=== PATIENT | male | born 1985 | race Caucasian/White ===

== ENCOUNTER 2023-07-18 08:59 | Outpatient (CLI) | payer OTHER, SELFPAY ==
--- NOTE | 2023-07-18 09:24 | ECHO_ITS ---
Patient Info Name: Matthew Bryan Age: 38 years : 1985 Gender: Male Ht: 74 in Wt: 240 lbs BSA: 2.41 m2 HR: 54 bpm BP: 131 / 79 mmHg Technical Quality: Fair Exam Date: 07/18/2023 9:32 AM Exam Location: [facility] Patient Status: Outpatient Admit Date: 07/18/2023 Staff Ordering Physician: Yahir Giraldo MD Expenditure Requisition Clerk: Anel Dumont RDCS Attending Provider: Yahir Giraldo MD Referring Physician: Enzo MACHADO; Exam Type: CA echo doppler w bubble study Study Info Indications G45.9 - Transient cerebral ischemic attack, unspecified Complete two-dimensional, color flow and Doppler transthoracic echocardiogram is performed with agitated saline. Contrast/Agitated Saline Contrast/Ag. Saline: Agitated Saline Amount: 20.00 ml Administered By: Anel Dumont [facility] Existing IV Access: Yes New IV Access: Left Site Condition: IV removed Summary 1. Left ventricular chamber dimension is mildly enlarged. 2. Left ventricular systolic function is normal, estimated at 65-70%. 3. The left ventricular diastolic function is normal. 4. E/e' 8 is minimally elevated. 5. Left atrial chamber dimension is mildly enlarged. 6. Right atrial chamber dimension is mildly enlarged. 7. Agitated saline injection with and without valsalva opacified right side cardiac chambers and only with valsalva there were several bubbles that shunted to left cardiac chambers suggestive of patent foramen ovale. 8. There is mild tricuspid valve regurgitation. 9. No pulmonary hypertension, estimated pulmonary arterial systolic pressure is 18 mmHg. 10. There is trace pulmonic regurgitation. Left Ventricle E/e' 8 is minimally elevated. Left ventricular chamber dimension is mildly enlarged. Left ventricular systolic function is normal, estimated at 65-70%. The left ventricular diastolic function is normal. Right Ventricle Right ventricular chamber dimension is normal. Right ventricular systolic function is normal. Left Atria Left atrial chamber dimension is mildly enlarged. Right Atria Right atrial chamber dimension is mildly enlarged. Atrial Septum Agitated saline injection with and without valsalva opacified right side cardiac chambers and only with valsalva there were several bubbles that shunted to left cardiac chambers suggestive of patent foramen ovale. Suspected patent foramen ovale visualized by 2D and agitated saline imaging. Aortic Valve The aortic valve is trileaflet. There is no aortic valve stenosis. There is no aortic valve regurgitation. Pulmonic Valve There is trace pulmonic regurgitation. Mitral Valve There is no mitral valve stenosis. There is no mitral valve regurgitation. Tricuspid Valve There is mild tricuspid valve regurgitation. No pulmonary hypertension, estimated pulmonary arterial systolic pressure is 18 mmHg. Pericardium/Pleural There is no pericardial effusion. Inferior Vena Cava Normal inferior vena cava with >50% collapse upon inspiration consistent with normal right atrial pressure, 5 mmHg. Aorta The aortic root size at the sinus of Valsalva is normal. Left Ventricular Outflow Tract Name Value Normal LVOT 2D LVOT Diameter 2.2 cm LVOT Doppler
== END 2023-07-18 09:00 | disposition home or self-care (01) ==
PROVIDERS: PCP Family Medicine; Visit Provider Family Medicine
DX: G45.9 Transient cerebral ischemic attack, unspecified (principal); I07.1 Rheumatic tricuspid insufficiency; R93.1 Abnormal findings on diagnostic imaging of heart and coronary circulation
CPT/HCPCS: 93306; 96375

== ENCOUNTER → 2023-07-18 12:28 | Outpatient (CLI) | payer OTHER, SELFPAY ==
--- NOTE | ~2023-07-18 | US_ITS ---
EXAMINATION: US carotid duplex BI DATE: 07/18/2023 12:54 INDICATION: Transient cerebral ischemic attack. Speech-language deficit. TECHNIQUE: Grayscale, color Doppler, and pulsed Doppler images of the cervical carotid arteries were obtained. The degree of vessel stenosis is placed in one of the following categories: normal, <50%, 5 0-69%, >=70% but less than near-occlusion, near-occlusion, or total occlusion. Note that percent sten osis relative to normal distal artery lumen diameter is indirectly measured from velocity measurement s as described by Iam, et al. Radiology 2003; 229:340-346. COMPARISON: None. FINDINGS: RIGHT: The right common carotid artery (CCA) peak systolic velocity (PSV) is 132 cm/s. The right internal ca rotid artery (ICA) PSV is 97 cm/s. The right ICA end-diastolic velocity (EDV) is 27 cm/s. The right I CA/CCA PSV ratio is 0.6. Grayscale and color Doppler images demonstrate no appreciable stenosis or pl aque in the ICA. The external carotid artery (ECA) PSV is 120 cm/s. There is antegrade flow in the ri ght vertebral artery. LEFT: The left CCA PSV is 158 cm/s. The left ICA PSV is 104 cm/s. The left ICA EDV is 25 cm/s. The left ICA /CCA PSV ratio is 0.7. Grayscale and color Doppler images demonstrate no appreciable stenosis or plaq ue in the ICA. The ECA PSV is 118 cm/s. There is antegrade flow in the left vertebral artery. IMPRESSION: 1. No evident plaque or stenosis in the right internal carotid artery. 2. No evident plaque or stenosis in the left internal carotid artery. Reviewed, dictated and finalized at location A.
== END ==
PROVIDERS: PCP Family Medicine; Visit Provider Family Medicine
DX: G45.9 Transient cerebral ischemic attack, unspecified (principal)
CPT/HCPCS: 93880

== ENCOUNTER 2023-09-17 14:00 | Outpatient (RCR) | payer OTHER, SELFPAY ==
--- NOTE | 2023-07-23 11:00 | PTOPEVAL1 ---
Assessment and note entered by Vazquez Alberto Evaluation Information Assessment Status Evaluation Diagnosis TIA Onset 07/06/23 Subjective Information Pt. is present. She reports that they were in [place] and he suffered a seizure. He was taken to the hospital. He reports he was discharged and saw his family doctor, who felt his medication at the time could have caused his seizures. His reports he woke on 07/10/23 and was slurring his speech. He was taken to the [place] for testing. He underwent MRI and was informed that he suffered a TIA on 07/15/23 by his family doctor. 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 He and his have noticed his gait has declined since the TIA. he was initially using a walker, but is not going with only holding onto his wifes hand. He reports that his walker at home is a 2 wheeled walker. he notices that the left foot will start to drag towards the end of the day when he is tired. Pt. has stumbled a few times, but has not fallen since his TIA. He reports that he walked without complication prior to this recent episode. He reports that his goal is to be able to walk without assistance. Reported Pain Level Pain Score 5: Self Report Assessment PT Clinical Summary Pt. is a 38 year old male who enters the clinic post TIA. He presents with impaired balance, impaired gait, impaired l.e. strength, impaired coordination and pain on this date. Continued skilled PT is indicated in order to improve these areas to allow for improved safety and independence with IADL performance. Plan of Care Interventions Gait Training,Manual Therapy,Neuro Re-education, Patient/Caregiver Educati,Therapeutic Activities, Therapeutic Exercise PT Services Indicated Yes Treatment Frequency and 2x/week x 10 visits Duration These treatments will address the objective and functional deficits as defined above. The patient will be advanced safely and appropriately in order for the patient to progress towards his/her prior level of function. Additional exercises will be introduced and as well as a comprehensive home exercise program upon discharge, if needed, ?to ensure carryover of functional gains achieved in the clinic. This treatment plan has been reviewed and agreement upon by the patient.
--- NOTE | 2023-07-23 11:02 | OPREHPOC ---
Outpatient Therapy Plan of Care This is a Multidisciplinary Plan of Care that may contain components documented by all disciplines (PT, OT, and ST.) PT Problem 1 PT Problem #1 Knowledge Deficit PT Goal 1 Goal Indepndent with a HEP addressing l.e. strength and mobility. PT Problem 2 PT Problem #2 Impaired Balance PT Goal 1 Goal Pt. will increase his tinetti score to 15 or greater indicating improved balance and safety. Target Visit 10 PT Problem 3 PT Problem #3 Impaired Gait PT Goal 1 Goal Pt. will ambulate over level surface with single point cane independently for a distance of 300-500 ' Target Visit 10 PT Problem 4 PT Problem #4 Impaired Functional Mobil PT Goal 1 Goal Pt. will safely ambulate through the community without assistance using a single point cane. Target Visit 10 PT Problem 5 PT Problem #5 Impaired Strength PT Goal 1 Goal Pt. will demonstrate 4+/5 gross l.e. strength in order to improve stability and endurance with standing activities. Target Visit 10
--- NOTE | 2023-08-01 16:08 | STOPEVAL1 ---
Assessment and note entered by Hannah Serra WHITTLING ROOM OPERATOR Evaluation Information Assessment Status Evaluation Reported Pain Level Pain Score 0: Self Report Assessment ST Clinical Summary Pt was seen for a speech/language and cognitive- linguistic evaluation due to complaint of slurred speech, increased confusion, and knowing he wants to say but can't say it . Upon completion of this evaluation, pt was found to exhibit mild communicative and mild executive function deficits . 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 Due to this communicative dysfunction, skilled speech therapy is warranted 2x/week for 8 visits. 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 Plan of Care Interventions Treatment of Speech,Treatment for Cognitive F ST Services Indicated Yes Treatment Frequency and 2x/week for 8 visits Duration These treatments will address the objective and functional deficits as defined above. The patient will be advanced safely and appropriately in order for the patient to progress towards his/her prior level of function. Additional exercises will be introduced and as well as a comprehensive home exercise program upon discharge, if needed, ?to ensure carryover of functional gains achieved in the clinic. This treatment plan has been reviewed and agreement upon by the patient.
--- NOTE | 2023-08-01 16:19 | STOPEVAL1 ---
Assessment and note entered by Hannah Serra, RN SECURITY Evaluation Information Assessment Status Evaluation Diagnosis TIA; Possible CVA Onset July 06 Subjective Information Patient and his reported his speech deficits vary but are much different than prior to this TIA ; they report slurring of speech worsens as the day goes; he reportedly has episodes of increased rate of talking and can occasionally get louder; he reports he also gets more easily confused as the day goes. Pt reportedly suffered a TBI while in the but they report he was at his cognitive baseline until recently. Pt was working as a construction technician. He was independent with all activities of daily living; he was working, driving, managing finances without assist. They reported only a rare stutter. Reported Pain Level Pain Score 0: Self Report Assessment ST Clinical Summary Pt was seen for a speech/language and cognitive- linguistic evaluation due to complaint of slurred speech, increased confusion, and knowing he wants to say but can't say it . Upon completion of this evaluation, pt was found to exhibit mild communicative and mild executive function deficits . 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 Due to this communicative dysfunction, skilled speech therapy is warranted 2x/week for 8 visits. 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 Plan of Care Interventions Treatment of Speech,Treatment for Cognitive F ST Services Indicated Yes Treatment Frequency and 2x/week for 8 visits Duration These treatments will address the objective and functional deficits as defined above. The patient will be advanced safely and appropriately in order for the patient to progress towards his/her prior level of function. Additional exercises will be introduced and as well as a comprehensive home exercise program upon discharge, if needed, ?to ensure carryover of functional gains achieved in the clinic. This treatment plan has been reviewed and agreement upon by the patient.
--- NOTE | 2023-08-09 14:02 | PCSTNOTE ---
pt canceled appointment on 08/07/23 due to a schedule conflict
--- NOTE | 2023-08-12 13:11 | PCPTNOTE ---
Patient called & cancelled scheduled appointment this date due to getting x-ray over the weekend and having right ankle fracture.
--- NOTE | 2023-08-12 17:02 | PCPTNOTE ---
Pt's called and stated after therapy last week, patient's right ankle began to hurt and swell. Pt's stated pt stated that he worked on his right leg in therapy that day. Went to emergency room where x-rays found arthritis and a fracture. Pt's states they said it wasn't broken but has a fracture . Reports patient was not provided a walking boot and does not have her paperwork present to see if orthopaedic referral was performed. Pt's cancelled therapy this week but didn't want it to count against him as a cancellation. Will discuss with referring MD and reevaluate patient as able to continue therapy due to reported status change.
--- NOTE | 2023-08-20 16:57 | PTOPPROG ---
Assessment and note entered by Milady Bautista, PT Assessment Status Progress Report Diagnosis TIA Therapy conditions LLE weakness, unspec abnormalities of gait and mobility, LLE drop foot, gait abnormality Onset 07/06/23 Subjective Information -Pt reports improved walking with borrowed AFO brace. -Reports went to emergency room for ankle pain after last session. Had a x-ray and shows fracture , reports was a new fracture. Was provided a wrap but no boot. Pt reports he takes wrap on and off during the day, at night elevated and doesn't wrap. -Has been taking walks daily -Reports taking over the counter neuro medication that is homeopathic reports has seemed to help with focus and fine motor at home. -Left knee continues to be painful Assessment PT Clinical Summary Pt has been unable to attend therapy consistently for multiple factors outside of control of the rehab department. However with use of AFO and even since has been using AFO his gait pattern has improved significantly as well as his anterior tibialis strength has ipmroved to 3+/5 from 3-/5. Tinetti score with use of AFO significantly improved functional balance as well. Right ankle fracture at this time does not appear to impede patient while in clinic however outside of clinic pt reports increased pain in ankle at times. Pt will greatly benefit from cont therapy to continue progressing in LLE strengthening, control, balance, and overall coordination modifying as needed for right ankle. Plan of Care Interventions Electrical Stimulation,Gait Training,Hot Pack/Cold Pack,Manual Therapy,Neuro Re-education,Patient/ Caregiver Educati,Therapeutic Activities, Therapeutic Exercise,Ultrasound PT Services Indicated Yes Treatment Frequency and 1-2x weekly x 4 weeks Duration These treatments will address the objective and functional deficits as defined above. The patient will be advanced safely and appropriately in order for the patient to progress towards his/her prior level of function. Additional exercises will be introduced and as well as a comprehensive home exercise program upon discharge, if needed, ?to ensure carryover of functional gains achieved in the clinic. This treatment plan has been reviewed and agreement upon by the patient.
--- NOTE | 2023-08-27 09:19 | PCSTNOTE ---
Pt canceled appointment for August 29 due to possibly having COVID. This appointment was for the re eval/progress note. Pt will reschedule when he feels better.
--- NOTE | 2023-09-05 11:27 | PTOPDC ---
Assessment and note entered by Milady Bautista, PT Assessment Status Discharge - Pt Not Present Diagnosis TIA Onset 07/06/23 Subjective Information -Pt reports improved walking with borrowed AFO (08/20/23) brace. -Reports went to emergency room for ankle pain after last session. Had a x-ray and shows fracture , reports was a new fracture. Was provided a wrap but no boot. Pt reports he takes wrap on and off during the day, at night elevated and doesn't wrap. -Has been taking walks daily -Reports taking over the counter neuro medication that is homeopathic reports has seemed to help with focus and fine motor at home. -Left knee continues to be painful Assessment PT Clinical Summary Pt and presented to therapy gym and discussed with front end architect to cancel remainder of appointments. hotel front desk clerk reported pt and stated they thought he was doing well enough and also it was getting expensive with their co-pay for therapy. Pt attended 4 therapy sessions over roughly 6 weeks time, cancelled 6 visits and no- [id number] for one visit. Thus pt is being discharged from therapy services at this time per patient request.
--- NOTE | 2023-09-25 07:30 | STOPDC ---
Assessment and note entered by Hannah Serra GLASS SMOOTHER Evaluation Information-DISCHARGE Assessment ST Clinical Summary The patient was seen for 4 of the 8 visits recommended; upon evaluation the pt presented with mild communicative and mild executive function deficits. 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 Treatments focused on improving prosody, loudness, & rate; pt was also instructed on the importance of the HEP. During treatment sessions, pt verbalized steady improvement with speech production despite inconsistent work on the recommended HEP or regular attendance to therapy. At patient's last visit, he presented with only occasional speech production errors, i.e. vowel prosody but error recognition and correction were good. Executive function skills were found to be within functional limits. Pt and spouse felt he no longer required further ST visits but they wanted to keep the appointment for the reevaluation just in case . Pt then canceled the re eval appointment. No further ST is recommended at this time. Plan of Care ST Services Indicated No
== END 2023-09-26 08:04 | disposition home or self-care (01) ==
LOC: ANHHIST 14:00
PROVIDERS: PCP Family Medicine; Visit Provider Family Medicine
DX: G45.9 Transient cerebral ischemic attack, unspecified (principal)
CPT/HCPCS: 92507; 92523; 97110; 97112; 97116; 97129; 97162; 97530; 97750

== ENCOUNTER 2023-09-24 13:36 | Outpatient (CLI) | payer OTHER, SELFPAY ==
[2023-09-24 14:11] LABS: Basophils Percent Auto 0.5 % (0.2-1.2); Eosinophils Absolute Auto 0.1 K/mm3 (0-0.3); Eosinophils Percent Auto 1.5 % (0-4.4); Hematocrit 45.9 % (42.0-52.0); Hemoglobin 15.3 g/dL (14.0-18.0); Immature Granulocyte Absolute 0.01 K/mm3 (0.00-0.031); Immature Granulocyte Percent A 0.2 % (0-0.5); Lymphocytes Absolute Auto 2.41 K/mm3 (0.9-3.2); Lymphocytes Percent Auto 39.1 % (18.3-44.2); Mean Corpuscular HGB Conc 33.3 g/dl (32-36); Mean Corpuscular Hemoglobin 29.2 pg (26-34); Mean Corpuscular Volume 87.6 fl (80-100); Mean Platelet Volume 9.9 fl (7.4-10.4); Monocytes Absolute Auto 0.4 K/mm3 (0.1-0.6); Monocytes Percent Auto 6.7 % (2.6-8.5); Neutrophils Absolute Auto 3.2 K/mm3 (1.3-6.7); Platelet Count Result 234 k/mm3 (150-375); Red Blood Count 5.24 M/mm3 (4.6-6.20); Red Cell Distribution Width 13.8 % (11.5-14.5); White Blood Count 6.2 K/mm3 (4.5-10.0)
[2023-09-24 14:18] LABS: Appearance Urine Cloudy (Clear); Bacteria Urine None Seen /hpf; Bilirubin Urine Negative (Negative); Blood Urine Negative (Negative); Color Urine Yellow (Yellow); Glucose Urine UA Negative (Negative); Ketones Urine Negative (Negative); Leukocyte Esterase Ur Negative LEU/UL (NEGATIVE); Nitrate Urine Negative (Negative); Non Pathogenic Casts 0-2; Protein Urine Negative (Negative); RBC Urine 0-2 /hpf (0-2); Squamous Epithelial Cell Urine None seen /hpf (Few); WBC Urine 0-5 /hpf (0-3); pH Urine 6.5 (5.0-9.0)
[2023-09-24 14:22] LABS: Anion Gap 10 mmol/L (8-16); Blood Urea Nitrogen 14 mg/dL (9-20); Calcium 9.7 mg/dL (8.4-10.2); Carbon Dioxide 24 mmol/L (22-30); Chloride 110 mmol/L (98-107); Estimated Glomerular Filt Rate > 60; Glucose 85 mg/dL (65-110); Potassium 3.5 mmol/L (3.4-5.0); Sodium 144 mmol/L (137-145)
[2023-09-24 14:23] LABS: Add Urine Microscopic? YES
== END 2023-09-24 13:37 | disposition home or self-care (01) ==
PROVIDERS: PCP Family Medicine; Referring Provider Internal Medicine; Visit Provider Family Medicine
DX: L40.9 Psoriasis, unspecified (principal); Q21.12 Patent foramen ovale; R21 Rash and other nonspecific skin eruption
CPT/HCPCS: 36415; 80048; 81001; 85025; 86038

== ENCOUNTER 2023-11-29 10:42 | Outpatient (CLI) | payer OTHER, SELFPAY ==
[2023-11-29 11:22] LABS: Basophils Percent Auto 0.5 % (0.2-1.2); Eosinophils Absolute Auto 0.1 K/mm3 (0-0.3); Eosinophils Percent Auto 1.7 % (0-4.4); Hematocrit 45.6 % (42.0-52.0); Hemoglobin 14.9 g/dL (14.0-18.0); Immature Granulocyte Absolute 0.02 K/mm3 (0.00-0.031); Immature Granulocyte Percent A 0.3 % (0-0.5); Lymphocytes Absolute Auto 2.28 K/mm3 (0.9-3.2); Lymphocytes Percent Auto 38.2 % (18.3-44.2); Mean Corpuscular HGB Conc 32.7 g/dl (32-36); Mean Corpuscular Hemoglobin 29.6 pg (26-34); Mean Corpuscular Volume 90.5 fl (80-100); Mean Platelet Volume 9.6 fl (7.4-10.4); Monocytes Absolute Auto 0.5 K/mm3 (0.1-0.6); Monocytes Percent Auto 8.4 % (2.6-8.5); Neutrophils Percent Auto 50.9 % (45.5-73.1); Platelet Count Result 277 k/mm3 (150-375); Red Blood Count 5.04 M/mm3 (4.6-6.20); Red Cell Distribution Width 15.3 % (11.5-14.5)
[2023-11-29 11:30] LABS: Anion Gap 8 mmol/L (8-16); Blood Urea Nitrogen 7 mg/dL (9-20); Calcium 9.4 mg/dL (8.4-10.2); Carbon Dioxide 29 mmol/L (22-30); Chloride 104 mmol/L (98-107); Estimated Glomerular Filt Rate > 60; Glucose 88 mg/dL (65-110); Potassium 4.2 mmol/L (3.4-5.0); Sodium 141 mmol/L (137-145)
== END 2023-11-29 10:43 | disposition home or self-care (01) ==
LOC: ANHLAB 10:46
PROVIDERS: PCP Family Medicine; Visit Provider Internal Medicine
DX: Q21.12 Patent foramen ovale (principal)
CPT/HCPCS: 36415; 80048; 85025

== ENCOUNTER 2024-05-04 12:22 | Outpatient (CLI) | payer OTHER, SELFPAY ==
--- NOTE | 2024-05-04 | ECHO_ITS ---
Patient Info Name: Matthew Bryan Age: 39 years : 1985 Gender: Male Ht: 74 in Wt: 262 lbs BSA: 2.53 m2 HR: 66 bpm BP: 107 / 75 mmHg Heart Rhythm: Sinus Rhythm Technical Quality: Fair Exam Date: 05/04/2024 12:44 PM Exam Location: [facility] Patient Status: Outpatient Admit Date: 05/04/2024 Staff Ordering Physician: BETHEL HARE Director Telemetry: Gabriella Stuart RDCS Attending Provider: BETHEL HARE Referring Physician: ANANYA PLATT; Exam Type: CA echo doppler w bubble study Study Info Indications - PFO Complete two-dimensional, color flow and Doppler transthoracic echocardiogram is performed with agitated saline. Contrast/Agitated Saline Contrast/Ag. Saline: Agitated Saline Amount: 14.00 ml IV Access Condition: patent with no signs of infiltration Summary 1. Unremarkable 2D echocardiogram other than the presence of PFO occluder device noted. 2. Doppler exam demonstrating trivial aortic regurgitation. 3. Doppler of atrial septum an agitated saline contrast injection demonstrates no shunt, effective closure of PFO. Left Ventricle Left ventricular chamber dimension is normal. Left ventricular systolic function is normal, estimated at 55-60%. The left ventricular diastolic function is normal. Left Atria Left atrial chamber dimension is normal. Right Atria Right atrial chamber dimension is normal. Atrial Septum Patent foramen ovale occluder visualized by agitated saline imaging. Aortic Valve The aortic valve is normal. There is trace aortic valve regurgitation. Pulmonic Valve The pulmonic valve is normal. Mitral Valve The mitral valve has normal leaflets. Tricuspid Valve The tricuspid valve leaflets are normal. Pericardium/Pleural The pericardium appears normal. Aorta The aortic root size at the sinus of Valsalva is normal. Left Ventricular Outflow Tract Name Value Normal LVOT 2D LVOT Diameter 2.1 cm LVOT Doppler LVOT Peak Gradient 3 mmHg LVOT Mean Gradient 2 mmHg LVOT VTI 16 cm LVOT VTI/AV VTI Ratio 0.9 LVOT Stroke Volume 55 ml LVOT CO 3.3 l/min LVOT CI 1.3 l/min/m2 Pulmonic Valve Name Value Normal RVOT Doppler RVOT Peak Gradient 2 mmHg PV Doppler PV Peak Gradient 3 mmHg PV Regurgitation Doppler RI Peak End Diastolic Velocity 70 cm/s Mitral Valve Name Value Normal
== END 2024-05-04 12:23 | disposition home or self-care (01) ==
LOC: ANHCARD 12:22
PROVIDERS: PCP Family Medicine
DX: Q21.12 Patent foramen ovale (principal); I35.1 Nonrheumatic aortic (valve) insufficiency
CPT/HCPCS: 93306; 96375

== ENCOUNTER 2024-08-08 10:40 | Outpatient (CLI) | payer OTHER, SELFPAY ==
--- NOTE | ~2024-08-08 | MR_ITS ---
EXAMINATION: MR shoulder RT wo con DATE: 08/08/2024 12:06 INDICATION: Right shoulder pain. TECHNIQUE: Magnetic resonance imaging (MRI) of the right shoulder was performed without intravenous c ontrast. Sequences included axial PD-weighted FS FSE, coronal oblique PD-weighted FS FSE and T2-weigh allison FS FSE, and sagittal oblique T2-weighted FS FSE and T1-weighted FSE. COMPARISON: None. FINDINGS: Coracoacromial arch: The acromion undersurface is flat in morphology (type I). There is severe acromioclavicular joint ost eoarthritis. There is mild subacromial/subdeltoid bursitis. Rotator cuff: There is mild supraspinatus and infraspinatus tendinopathy. Teres minor tendon is normal. There is mo derate subscapularis tendinopathy. There is mild fatty atrophy of supraspinatus muscle belly. Biceps tendon and glenoid labrum: Biceps tendon is in bicipital groove. There is mild intra-articular biceps tendinopathy. There is a t ear of superior posterior glenoid labrum (SLAP tear). There is a 1.6 x 0.8 x 0.5 cm cyst adjacent to the posterior labrum. Fluid: There is no glenohumeral joint effusion. Bones/cartilage: Glenoid cartilage is normal. Humeral head cartilage is normal. IMPRESSION: 1. Moderate rotator cuff tendinopathy. No tear. 2. SLAP tear with paralabral cyst. 3. Severe acromioclavicular joint osteoarthritis. 4. Mild subacromial/subdeltoid bursitis. 5. Mild intra-articular biceps tendinopathy. Reviewed, dictated and finalized at location A.
== END 2024-08-08 10:41 | disposition home or self-care (01) ==
PROVIDERS: PCP Nurse Practitioner Family; Visit Provider Nurse Practitioner Family
DX: M67.813 Other specified disorders of tendon, right shoulder (principal); Z86.73 Personal history of transient ischemic attack (TIA), and cerebral infarction without residual deficits; S43.431A Superior glenoid labrum lesion of right shoulder, initial encounter; W19.XXXA Unspecified fall, initial encounter; M19.011 Primary osteoarthritis, right shoulder; M75.51 Bursitis of right shoulder; M75.21 Bicipital tendinitis, right shoulder
CPT/HCPCS: 73221

== ENCOUNTER 2024-08-29 08:06 | Outpatient (CLI) | payer OTHER, SELFPAY ==
--- NOTE | ~2024-08-29 | MR_ITS ---
EXAMINATION: MR cervical spine wo con DATE: 08/29/2024 08:52 INDICATION: Cervical disc degeneration. Neck pain. TECHNIQUE: Magnetic resonance imaging (MRI) of the cervical spine was performed without intravenous c ontrast. COMPARISON: Cervical spine radiographs 06/24/2024 FINDINGS: There is 3 degrees levocurvature of cervical spine. There is kyphosis of cervical spine. Ve rtebral body heights are normal. There is moderately decreased disc height at C5-C6. The spinal cord signal intensity is normal. The following disc levels are specifically discussed: C2-C3: The disc does not extend beyond the endplate margin. There is mild bilateral uncovertebral krissy nt osteoarthritis. There is severe bilateral facet joint osteoarthritis. There is mild bilateral neur al foraminal stenosis. There is no central canal stenosis. C3-C4: The disc does not extend beyond the endplate margin. There is mild bilateral uncovertebral krissy nt osteoarthritis. There is moderate bilateral facet joint osteoarthritis. There is moderate right an d mild left neural foraminal stenosis. There is no central canal stenosis. C4-C5: The disc does not extend beyond the endplate margin. There is mild left uncovertebral joint os teoarthritis. There is moderate bilateral facet joint osteoarthritis. There is mild left neural amber inal stenosis. There is no central canal stenosis. C5-C6: There is a central protrusion. There is severe bilateral uncovertebral joint osteoarthritis. T here is moderate bilateral facet joint osteoarthritis. There is moderate right and mild left neural f oraminal stenosis. There is mild central canal stenosis. C6-C7: The disc does not extend beyond the endplate margin. There is no uncovertebral joint osteoarth ritis. There is no facet joint osteoarthritis. There is no neural foraminal stenosis. There is no shannan tral canal stenosis. C7-T1: The disc does not extend beyond the endplate margin. There is no uncovertebral joint osteoarth ritis. There is severe bilateral facet joint osteoarthritis. There is mild bilateral neural foraminal stenosis. There is no central canal stenosis. IMPRESSION: 1. Moderate cervical spondylosis. Reviewed, dictated and finalized at location A.
== END 2024-08-29 08:07 | disposition home or self-care (01) ==
PROVIDERS: PCP Nurse Practitioner Family; Visit Provider Nurse Practitioner Family
DX: M47.812 Spondylosis without myelopathy or radiculopathy, cervical region (principal)
CPT/HCPCS: 72141